=== PATIENT | male | born 1995 | race Hispanic/Latino ===

== ENCOUNTER → 2020-01-23 | Outpatient (CLI) | payer OTHER | END | disposition home or self-care (01) | LOC: SHCH 14:35 | PROVIDERS: ATTEND Internal Medicine Cardiovascular Disease | DX: R55 Syncope and collapse (principal) | CPT/HCPCS: 93306; 93356 ==

== ENCOUNTER 2023-12-17 07:20 | Emergency (ER) | payer BC, OTHER ==
[~2023-12-17] VITALS: Ht 172.7 cm; Wt 81.6 kg
[2023-12-17] MEDS: metoCLOPRAmide 10 MG/2 ML VIAL IVP ONE (07:48)
[2023-12-17] MEDS: 0.9%NACL 1000ML 1,000 ML IV ONE (07:48)
[2023-12-17 07:51] LABS: BASOPHILS # (AUTO) 0.02 K/uL (0.00-0.20); BASOPHILS % (AUTO) 0.2 % (0.0-5.0); EOSINOPHILS # (AUTO) 0.03 K/uL (0.00-0.70); EOSINOPHILS % (AUTO) 0.4 % (0.0-8.0); HEMATOCRIT 41.3 % (42-54); IMMATURE GRANULOCYTE ABSOLUTE 0.03 K/uL (0-1); LYMPHOCYTES % (AUTO) 24.4 % (21.0-51.0); MEAN CORPUSCULAR HGB CONC 33.7 g/dL (32.0-36.0); MEAN CORPUSCULAR VOLUME 89.2 fL (79-99); MONOCYTES # (AUTO) 0.6 K/uL (0.1-1.0); MONOCYTES % (AUTO) 6.8 % (3.0-13.0); NEUTROPHILS # (AUTO) 5.5 K/uL (1.8-7.7); NEUTROPHILS % (AUTO) 67.8 % (40.0-77.0); PLATELET COUNT (AUTO) 249 K/uL (130-400); RED BLOOD CELL COUNT(AUTO) 4.63 MIL/uL (4.50-6.20); RED CELL DISTRIBUTION WIDTH 12.5 % (11.0-15.5); WHITE BLOOD COUNT (AUTO) 8.1 K/uL (4.8-10.8)
--- NOTE | 2023-12-17 07:51 | ERN ---
General Chief Complaint: Chest Pain Stated Complaint: CHEST PAIN Time Seen by MD: 07:30 History of Present Illness Initial Comments 28-year-old male who presents for chest pain over the last 12 hours. He reports left-sided chest pain over his heart that started last night, but has gotten worse throughout the night. He reports feeling gassy in his abdomen. He reports mild dyspnea. No fevers, no sore throat, no cough or congestion or sputum production. He had a chest pain like this in the past that subsided on its own. Denies drug or alcohol abuse. Denies smoking. Denies significant family medical history. Medications: yrte No PCP. He does report a medical history of an aortic valve problem in the past. He does not take any medications and he never had any surgeries. He denies any recent dyspnea, swelling, fatigue, or other symptoms. Allergies: Coded Allergies: No Known Allergies (Unverified Allergy, Unknown, 12/17/23) Past Medical History Past Medical History: Other Past Surgical History: None ROS Dictation CONSTITUTIONAL: No chills, no fever, no weakness, no diaphoresis, no malaise. HEAD/FACE: No signs of trauma. EENT: No eye pain, no blurred vision, no tearing, no double vision, no ear pain, no ear discharge, no nose pain, no nasal congestion, no throat pain, no throat swelling, no mouth pain. RESPIRATORY: No cough, no orthopnea, no SOB, no stridor, no wheezing. CARDIOVASCULAR: Chest pain GASTROINTESTINAL/ABDOMINAL: No abdominal pain, no constipation, no diarrhea, no nausea, no vomiting. GENITOURINARY: No abnormal discharge, no dysuria, no frequent urination, no hematuria. No complaints of pain in the genitals. MUSCULOSKELETAL: No back pain, no gout, no joint pain, no joint swelling, no muscle pain, no muscle stiffness, no neck pain. INTEGUMENTARY: No change in color, no change in hair/nails, no dryness, no lesion, no lumps, no rash. NEUROLOGICAL/PSYCH: No anxiety, not depressed, no emotional problem, no headache, no numbness, no pre-existing deficit, no history of seizures, no tremors, no weakness. HEMATOLOGIC/LYMPHATIC: Not anemic, no history of blood clots, no apparent bleeding, no bruising, glands not swollen. All Systems Negative, Except as Noted. Physical Exam Physical Exam Dictation VITAL SIGNS: Reviewed. GENERAL APPEARANCE: Alert, oriented x3, no acute distress HEAD AND FACE: Non-traumatic. EYES: PERRL, pink conjunctivas, eyelid no trauma, anterior chamber clear. EARS: Pinnas intact and no signs of trauma or erythema. Ear canals clear and no discharge. TMs no erythema. NOSE: No discharge, no bleeding. OROPHARYNX: Mouth normal, teeth no caries, tongue pink. Pharynx clear, no e rythema. Tonsils no exudates, no abscesses noted. Mucous membrane moist. NECK: Supple, non-tender, no thyromegaly, no masses, no JVD, no bruits. BREAST: Deferred. CHEST: No tenderness, no crepitus, no paradoxical movement, no retractions. LUNGS: Clear, well-ventilated, symmetric, no rales, no wheezing, no rhonchi, no stridor, good breath sounds bilaterally. HEART: Regular rate, regular rhythm, no murmur, no gallops. VASCULAR: No peripheral edema. ABDOMEN: Soft, positive bowel sounds, nondistended, no guarding, nontender, no rebound, no masses no hepatomegaly, no splenomegaly, no Harris's sign, no hernias. RECTAL: Deferred. GENITAL: Deferred. NEUROLOGICAL: Normal speech, gross motor function intact, gross sensory function intact. MUSCULOSKELETAL: Neck nontender, full range of motion, back nontender, full range of motion. EXTREMITIES: Nontender, full range of motion. SKIN: Color pink, dry, no turgor, no rash, no lacerations, no abrasions, no contusions. LYMPHATICS: Deferred. Results Laboratory and Microbiology Lab and Micro Result Laboratory Tests Test 12/17/23 07:42 12/17/23 07:44 White Blood Count 8.1 K/uL (4.8-10.8) Red Blood Count 4.63 MIL/uL (4.50-6.20) Hemoglobin 13.9 g/dL (14.0-18.0) L Hematocrit 41.3 % (42-54) L Mean Corpuscular Volume 89.2 fL (79-99) Mean Corpuscular Hemoglobin 30.0 pg (27.0-33.0) Mean Corpuscular Hemoglobin Concent 33.7 g/dL (32.0-36.0) Red Cell Distribution Width 12.5 % (11.0-15.5) Platelet Count 249 K/uL (130-400) Mean Platelet Volume 9.9 fL (7.5-10.5) Immature Granulocyte % (Auto) 0.4 % (0-1) Neutrophils (%) (Auto) 67.8 % (40.0-77.0) Lymphocytes (%) (Auto) 24.4 % (21.0-51.0) Monocytes (%) (Auto) 6.8 % (3.0-13.0) Eosinophils (%) (Auto) 0.4 % (0.0-8.0) Basophils (%) (Auto) 0.2 % (0.0-5.0) Neutrophils # (Auto) 5.5 K/uL (1.8-7.7) Lymphocytes # (Auto) 2.0 K/uL (1.0-4.8) Monocytes # (Auto) 0.6 K/uL (0.1-1.0) Eosinophils # (Auto) 0.03 K/uL (0.00-0.70) Basophils # (Auto) 0.02 K/uL (0.00-0.20) Absolute Immature Granulocyte (auto 0.03 K/uL (0-1) Nucleated Red Blood Cells 0.0 % (0.0-0.19) Sodium Level 136 mmol/L (136-145) Potassium Level 3.6 mmol/L (3.5-5.1) Chloride Level 99 mmol/L (101-111) L Carbon Dioxide Level 31 mmol/L (21-32) Blood Urea Nitrogen 10 mg/dL (7-18) Creatinine 0.9 mg/dL (0.5-1.3) Glomerular Filtration Rate Calc 120 mL/min (>90) Random Glucose 101 mg/dL (70-105) Total Calcium 8.8 mg/dL (8.5-10.1) Total Creatine Kinase 220 U/L (21-232) Troponin I High Sensitivity 4 ng/L (4-75) Influenza Type A Antigen Negative For Type A Influenza Type B Antigen Negative For Type B SARS-CoV-2 Antigen (Rapid) PRESUMPTIVE NEGATIVE MDM CC: CP Historian: patient Comorbidities: none Limitations by social determinates of health: none VSS Differential diagnosis: ACS, chest wall pain, PE, TAD, PNA, other EKG: NSR, rate of 75, normal axis, good R-wave progression, early refill. No STEMI. Interpreted by me. CXR: no infiltrates, no cardiomegally, no effusions, independently interpreted by me. HEART score: 0 Labs: CBC normal, BMP normal. CK normal. Troponin normal. BNP normal Patient received IV NS 1L & reglan in the ED. PERC neg, low risk for TAD, PNA, ACS, or other life threats. Will DC to PCP f/u. ED Course Orders Procedure Category Date Status Time 12 Lead Ekg Tracing- EKG 12/17/23 Logged Technical 07:27 Cbc With Differential LAB 12/17/23 In Process 07:31 B-Type Natriuretic LAB 12/17/23 In Process Peptide 07:31 Chest 1vw RAD 12/17/23 Taken 07:31 Creatine Kinase, Total LAB 12/17/23 Complete 07:31 Troponin I High LAB 12/17/23 Complete Sensitivity 07:31 Basic Metabolic Panel LAB 12/17/23 Complete 07:31 Covid19 (Sars Antigen LAB 12/17/23 Complete Rapid) 07:31 Influenza Type A & B, LAB 12/17/23 Complete Rapid 07:31 Drug Screen Urine LAB 12/17/23 In Process 07:31 0.9%Nacl 1000ml (Ns PHA 12/17/23 Complete 1000ml) 08:00 Metoclopramide 10 PHA 12/17/23 Complete Mg/2 Ml Vial (Reglan 1 08:00 Current Medications Medications (Trade) Dose Ordered Sig/Anderson Route PRN Reason Start Time Stop Time Status Last Admin Dose Admin Metoclopramide HCl (regLAN 10MG IV) 10 mg ONCE ONCE IVP 12/17/23 08:00 12/17/23 08:01 DC 12/17/23 07:48 Sodium Chloride 1,000 ml @ 0 mls/hr ONCE ONCE IV 12/17/23 08:00 12/17/23 08:01 DC 12/17/23 07:48 Vital Signs Date Time Temp Pulse Resp B/P (MAP) Pulse Ox O2 Delivery O2 Flow Rate FiO2 12/17/23 07:54 78 14 112/71 99 Room Air* 0 21 12/17/23 07:22 97.7 77 20 127/82 98 DX & DISP Disposition: Discharge Departure Impression: Primary Impression: Chest pain with low risk for cardiac etiology Condition: Stable Additional Instructions: There are no dangerous findings on your workup today. As we discussed, you are very low risk for cardiac disease. Your EKG is normal. Your chest x-ray is normal. Your lab work (CBC, BMP, BNP, troponin, CK) is normal. You received IV fluids and Reglan in the ER. If you continue with discomfort, I recommend that you take 1000 mg of Tylenol or 800 mg of ibuprofen. These medications are [id number]. I recommend that you follow up with the primary physician for further evaluation. You may need further studies. Please return to the emergency department as needed. Referrals: Marco Antonio ADKINS II, MD (PCP) JOE LUNA DO Dec 17, 2023 07:51
[2023-12-17 08:16] LABS: CREATININE 0.9 mg/dL (0.5-1.3); POTASSIUM 3.6 mmol/L (3.5-5.1)
[2023-12-17 08:22] LABS: COVID19 (SARS ANTIGEN RAPID) PRESUMPTIVE NEGATIVE (NEGATIVE); INFLUENZA TYPE A Negative For Type A (NEGATIVE); INFLUENZA TYPE B Negative For Type B (NEGATIVE)
[2023-12-17 08:33] LABS: AMPHET/METH SCREEN,URINE NEGATIVE (NEGATIVE); BARBITURATE SCREEN, URINE NEGATIVE (NEGATIVE); BENZODIAZEPINES SCREEN,URINE NEGATIVE (NEGATIVE); CANNABINOID SCREEN,URINE NEGATIVE (NEGATIVE); COCAINE SCREEN,URINE NEGATIVE (NEGATIVE); OPIATE SCREEN,URINE NEGATIVE (NEGATIVE); PHENCYCLIDINE SCREEN,URINE NEGATIVE (NEGATIVE)
[2023-12-17 08:46] LABS: B-TYPE NATRIURETIC PEPTIDE 12 pg/mL (0-100)
[2023-12-17 08:58] VITALS: BP 114/81; PULSE 72; RESP 16; TEMP 97.7; O2SAT 100
--- NOTE | 2023-12-17 09:06 | HMCIMG ---
CHEST 1VW HISTORY: Chest pain COMPARISON: None FINDINGS: A frontal projection of the chest was obtained. No acute pulmonary infiltrates is seen. The heart is normal in size. Prominent interstitial markings are seen. No evidence of aortic calcification is seen. IMPRESSION: 1. No acute pulmonary infiltrate is seen.
--- NOTE | 2023-12-17 09:19 | EKG ---
[facility] Test Date: 2023-12-17 Test Time: 07:13:28 Pat Name: DEVON PINK Department: ED Patient ID: [facility] [place] [facility] [id number] Room: Gender: M Clinical Services Assistant: [id number] : 1995 Requested By: JOE LUNA Order Number: [id number] Reading MD: Patricio Heck Measurements Intervals [place] Rate: 75 P: 4 WA: 121 QRS: 7 QRSD: 115 T: 12 QT: 379 QTc: 423 Interpretive Statements Sinus rhythm Nonspecific intraventricular conduction delay ST elev, probable normal early repol pattern No previous ECG available for comparison Electronically Signed On 12-17-2023 18:35:49 [employer] by Patricio Heck Please click the below link to view image of tracing.
== END 2023-12-17 09:01 | disposition home or self-care (01) ==
LOC: EDH 07:20
DX: R07.89 Other chest pain (principal); Z20.822 Contact with and (suspected) exposure to COVID-19
CPT/HCPCS: 99284; 96374; 71045; 96361; 87426; 82550; 84484; 80048; 83880; 80305; 85025; 87804 ×2; 36415; 93005; J7030; J2765